=== PATIENT | female | born 1940 | race Caucasian/White ===

== ENCOUNTER 2017-11-25 09:50 | Inpatient (IN) | payer MEDICARE ==
[2017-11-25] VITALS (7 sets, daily range): BP systolic 130–203; BP diastolic 70–96; PULSE 75–86; RESP 16–18; TEMP 98.2–99; O2SAT 94–98
[~2017-11-25] VITALS: Ht 162.6 cm; Wt 84.4 kg
[~2017-11-25 09:50] MED LIST: DILTCD300 PO; FLON0.053; FURO20TA PO; KLOR8TAB PO; LISI-363 PO; LORA-392 PO; OMEP20TA PO; STELARA INJ
[2017-11-25 11:02] LABS: AUTOMATED NEUTROPHIL # 7.8 TH/MM3 (1.8-7.7); BASOPHIL % 0.4 % (0.0-2.0); EOSINOPHIL % 0.2 % (0.0-4.0); HEMATOCRIT 41.1 % (35.0-46.0); HEMOGLOBIN 13.9 GM/DL (11.6-15.3); LYMPH % 10.3 % (9.0-44.0); LYMPHOCYTE # 0.9 TH/MM3 (1.0-4.8); MEAN CELL VOLUME 90.1 FL (80.0-100.0); MEAN CORPUSCULAR HEMOGLOBIN 30.5 PG (27.0-34.0); MEAN CORPUSCULAR HGB CONC 33.9 % (32.0-36.0); MEAN PLATELET VOLUME 8.8 FL (7.0-11.0); MONO % 2.2 % (0.0-8.0); MONOCYTE # 0.2 TH/MM3 (0-0.9); NEUT % 86.9 % (16.0-70.0); PLATELET COUNT 232 TH/MM3 (150-450); RED BLOOD COUNT 4.56 MIL/MM3 (4.00-5.30); RED CELL DISTRIBUTION WIDTH 13.9 % (11.6-17.2)
[2017-11-25] MEDS ORDERED: OMEP20TA93 PO (11:04)
[2017-11-25] MEDS ORDERED: HYDR-3516 (11:04)
[2017-11-25] MEDS ORDERED: FURO1TAB62 PO (11:04)
[2017-11-25] MEDS ORDERED: FLUT1SPR5 EACH NARE (11:04)
[2017-11-25] MEDS ORDERED: LISI-515 PO (11:04)
[2017-11-25] MEDS ORDERED: LORA-392 PO (11:04)
[2017-11-25] MEDS ORDERED: DILT300C3 PO (11:04)
[2017-11-25] MEDS ORDERED: KLOR8TAB PO (11:04)
[2017-11-25 11:17] LABS: BICARBONATE 24.6 MEQ/L (21.0-32.0); CALCIUM 10.2 MG/DL (8.5-10.1); CREATININE 1.25 MG/DL (0.50-1.00)
--- NOTE | 2017-11-25 11:23 | PD ---
HPI Chief Complaint: Flank/Kidney Pain Time Seen by Provider: 11:06 Travel History International Travel<30 days: No Contact w/Intl Traveler<30days: No Traveled to known affect area: No History of Present Illness HPI 77-year-old female presents emergency department with sudden onset right-sided lower abdominal and flank pain since approximately 1 AM this morning. Patient states history of kidney stones in the past with similar presentation. Patient also questions possible urinary tract infection. Patient is nauseous with a couple Episodes of vomiting this morning. Patient questions fever. Patient denies diarrhea. Pain is waxing and waning over the past several hours. Currently is an 8 out of 10. She states she is not allergic to morphine, but it "does not work". PFSH Past Medical History Arthritis: No Blood Disorders: No Heart Rhythm Problems: No Cancer: Yes (SKIN CANCERS) Cardiovascular Problems: No High Cholesterol: Yes Chemotherapy: No Chest Pain: No Congestive Heart Failure: No Diabetes: No Diminished Hearing: No Endocrine: No Gastrointestinal Disorders: Yes (ACID REFLUX ) GERD: Yes Glaucoma: No Genitourinary: No Hepatitis: No Hiatal Hernia: No Hypertension: Yes Kidney Stones: Yes Medical other: No Musculoskeletal: Yes (ARTHRITIS) Neurologic: No Psychiatric: No Reproductive: No Respiratory: No Integumentary: Yes (PSORIASIS) Radiation Therapy: No Renal Failure: No Thyroid Disease: No Ulcer: No Tetanus Vaccination: Unknown Influenza Vaccination: No Menopausal: Yes Past Surgical History Abdominal Surgery: Yes (APPY ) AICD: No Appendectomy: Yes Arteriovenous Shunt: No Cardiac Surgery: No Ear Surgery: No Endocrine Surgery: No Eye Surgery: Yes (EMILY CATARACT EXTRACTION WITH LENS IMPLANT ) Genitourinary Surgery: Yes (KIDNEY STONES. HAD LITHOTRIPSY) Gynecologic Surgery: No Insulin Pump: No Joint Replacement: No Oral Surgery: Yes (TONSILLECTOMY) Pacemaker: No Thoracic Surgery: No Tonsillectomy: Yes Other Surgery: Yes (LITHOTRIPSY) Social History Alcohol Use: Yes (WINE OCC) Tobacco Use: No Substance Use: No Allergies-Medications (Allergen,Severity, Reaction): Coded Allergies: amoxicillin (Unverified Allergy, Severe, 11/25/17) PT UNSURE BUT SHE THINKS SHE JUST DIDN'T FEEL WELL WHEN TAKEN morphine (Unverified Allergy, Mild, 11/25/17) INEFFECTIVE WHEN ADMINISTERED FOR KIDNEY STONES fexofenadine (Unverified Allergy, Unknown, ANXIETY, 3/8/18) methotrexate (Unverified Allergy, Unknown, LIVER ENZYMES ELEVATED, 11/25/17) moxifloxacin (Unverified Allergy, Unknown, ANXIETY, 11/25/17) leflunomide (Unverified Adverse Reaction, Intermediate, Diarrhea, 11/25/17) UNCERTAIN; PATIENT DOES NOT RECALL TAKING THIS MED Uncoded Allergies: embrel (Allergy, Mild, SUPERVISOR PHOTOCOMPOSITION EFFECTS; COULDN'T WALK, 04/09/15) PSORATANE (Allergy, Unknown, UNKNOWN, 05/14/09) q tUSS (Allergy, Unknown, ANXIETY, 04/09/15) PT HAS NO RECOLLECTION OF THIS MED OR THE REACTION Reported Meds & Prescriptions Reported Meds & Active Scripts Active Reported Hydrocodone-Acetamin 5-325 mg (Hydrocodone/Acetaminophen) 5 Mg-325 Mg Tablet Klor-Con 8 (Potassium Chloride) 8 Meq Tab 8 Meq PO DAILY Omeprazole 20 Mg Tab 20 Mg PO DAILY Ativan (Lorazepam) 0.5 Mg Tab 0.5 Mg PO HS PRN Lisinopril 20 Mg Tab 20 Mg PO BID Lasix (Furosemide) 20 Mg Tab 20 Mg PO DAILY Flonase Nasal [place] (Fluticasone Nasal [place]) 50 Mcg/Act [place] 50 Mcg EACH NARE BID Diltiazem CD 24 HR 300 Mg Caper 300 Mg PO DAILY [Stelara] 45 Mg INJ Q 3 MONTHS Review of Systems Except as stated in HPI: all other systems reviewed are Neg General / Constitutional: Positive: Chills, No: Fever Eyes: No: Visual changes HENT: No: Headaches Cardiovascular: No: Chest Pain or Discomfort Respiratory: No: Shortness of Breath Gastrointestinal: Positive: Nausea, Vomiting, Abdominal Pain, No: Diarrhea Genitourinary: Positive: Flank Pain, No: Urgency, Frequency, Dysuria, Nocturia , Hematuria, Discharge Musculoskeletal: No: Myalgias, Arthralgias, Limited ROM, Pain Skin: No Rash Neurologic: No: Weakness Psychiatric: No: Depression Endocrine: No: Polydipsia Hematologic/Lymphatic: No: Easy Bruising Physical Exam Narrative GENERAL: Patient appears ill but not septic. She is obviously nauseous. SKIN: Warm and dry. Somewhat decreased pallor. Normal turgor. No diaphoresis. HEAD: Normocephalic. Nontender. EYES: Pupils equal and round. No scleral icterus. No injection or drainage. ENT: No nasal bleeding or discharge. Mucous membranes pink and moist. Pharynx is clear. Airways patent. TMs are clear. NECK: Trachea midline. Supple and nontender CARDIOVASCULAR: Regular rate and rhythm. No murmurs gallops or rubs per RESPIRATORY: No accessory muscle use. Clear to auscultation. Breath sounds equal bilaterally. GASTROINTESTINAL: Abdomen soft, mild to moderate nonspecific right sided abdominal tenderness. No significant CVA tenderness. The abdomen appear nondistended. Hepatic and splenic margins not palpable. MUSCULOSKELETAL: Extremities without clubbing, cyanosis, or edema. No obvious deformities. NEUROLOGICAL: Awake and alert. No obvious cranial nerve deficits. Motor grossly within normal limits. Five out of 5 muscle strength in the arms and legs. Normal speech. PSYCHIATRIC: Appropriate mood and affect; insight and judgment normal. Data Data Last Documented VS Vital Signs Date Time Temp Pulse Resp B/P (MAP) Pulse Ox O2 Delivery O2 Flow Rate FiO2 11/25/17 12:52 75 154/77 (102) 95 Nasal Cannula 2.00 11/25/17 09:55 98.2 16 Orders Orders Urinalysis - C+S If Indicated (11/25/17 09:57) Complete Blood Count With Diff (11/25/17 09:57) Basic Metabolic Panel (Bmp) (11/25/17 09:57) Lipase (11/25/17 11:28) Prothrombin Time / Inr (Pt) (11/25/17 11:28) Act Partial Throm Time (Ptt) (11/25/17 11:28) Iv Access Insert/Monitor (11/25/17 11:28) Ecg Monitoring (11/25/17 11:28) Oximetry (11/25/17 11:28) NPO (11/25/17 11:28) Ondansetron Inj (Zofran Inj) (11/25/17 11:30) Sodium Chlor 0.9% 1000 Ml Inj (Ns 1000 M (11/25/17 11:28) Sodium Chloride 0.9% Flush (Ns Flush) (11/25/17 11:30) Electrocardiogram (11/25/17 11:28) Dicyclomine Inj (Bentyl Inj) (11/25/17 11:30) Hydromorphone Pf Inj (Dilaudid Pf Inj) (11/25/17 11:30) Hydromorphone Pf Inj (Dilaudid Pf Inj) (11/25/17 12:00) Ct Abd/Pel W/O Iv Contrast (11/25/17 11:48) Oral Contrast - Adult (11/25/17 12:02) Diatrizoate Liq (Md [place] Liq) (11/25/17 12:58) Tamsulosin (Flomax) (11/25/17 15:45) Ceftriaxone Inj (Rocephin Inj) (11/25/17 15:45) Ondansetron Inj (Zofran Inj) (11/25/17 16:15) Consult Urology (11/25/17 ) Labs Laboratory Tests Test 11/25/17 10:15 11/25/17 10:55 11/25/17 12:05 White Blood Count 9.0 TH/MM3 Red Blood Count 4.56 MIL/MM3 Hemoglobin 13.9 GM/DL Hematocrit 41.1 % Mean Corpuscular Volume 90.1 FL Mean Corpuscular Hemoglobin 30.5 PG Mean Corpuscular Hemoglobin Concent 33.9 % Red Cell Distribution Width 13.9 % Platelet Count 232 TH/MM3 Mean Platelet Volume 8.8 FL Neutrophils (%) (Auto) 86.9 % Lymphocytes (%) (Auto) 10.3 % Monocytes (%) (Auto) 2.2 % Eosinophils (%) (Auto) 0.2 % Basophils (%) (Auto) 0.4 % Neutrophils # (Auto) 7.8 TH/MM3 Lymphocytes # (Auto) 0.9 TH/MM3 Monocytes # (Auto) 0.2 TH/MM3 Eosinophils # (Auto) 0.0 TH/MM3 Basophils # (Auto) 0.0 TH/MM3 CBC Comment DIFF FINAL Differential Comment Prothrombin Time 10.2 SEC Prothromb Time International Ratio 1.0 RATIO Activated Partial Thromboplast Time 25.4 SEC Blood Urea Nitrogen 30 MG/DL Creatinine 1.25 MG/DL Random Glucose 127 MG/DL Calcium Level 10.2 MG/DL Sodium Level 140 MEQ/L Potassium Level 3.9 MEQ/L Chloride Level 107 MEQ/L Carbon Dioxide Level 24.6 MEQ/L Anion Gap 8 MEQ/L Estimat Glomerular Filtration Rate 41 ML/MIN Urine Color YELLOW Urine Turbidity HAZY Urine pH 8.0 Urine Specific [place] 1.015 Urine Protein TRACE mg/dL Urine Glucose (UA) NEG mg/dL Urine Ketones TRACE mg/dL Urine Occult Blood SMALL Urine Nitrite NEG Urine Bilirubin NEG Urine Urobilinogen LESS THAN 2.0 MG/DL Urine Leukocyte Esterase NEG Urine RBC 44 /hpf Urine WBC 2 /hpf Urine Squamous Epithelial Cells <1 /hpf Urine Amorphous Sediment OCC Urine Mucus FEW /lpf Microscopic Urinalysis Comment CULT NOT INDICATED Lipase 132 U/L MDM Medical Decision Making Medical Screen Exam Complete: Yes Emergency Medical Condition: Yes Medical Record Reviewed: Yes Differential Diagnosis Abdominal pain. Flank pain. Nausea, vomiting, gastritis. Diverticulitis. Kidney stone. Pancreatitis. Narrative Course Patient is ill but medically stable at time of exam. Labs ordered including CBC, CMP, lipase, urinalysis, coagulation studies. IV access is obtained, and the patient is given 4 mg Zofran IV as well as 1 mg tablet at IV as she is allergic to morphine. Patient is given 1000 mL's normal saline bolus. Patient is [address] of the abdomen without IV contrast with oral contrast is ordered CBC shows no significant leukocytosis Coagulation studies are unremarkable. Chemistries unremarkable except for BUN of 30, creatinine of 1.25, GFR 41. Random glucose 127. Calcium slightly elevated at 10.2 Urinalysis is unremarkable, other than small occult blood with 44 RBCs per high- power field. CT shows: 1. There is a 9 mm stone in the proximal right ureter just below the UPJ causing hydronephrosis to the right kidney. 2. 4 mm stone lower pole right kidney not causing obstruction. 3. Scattered diverticulosis of the sigmoid colon without inflammatory changes. 4. Multiple calcified uterine fibroids. Calls placed to Dr. Montemayor, the urologist video production assistant. Patient started to vomit again, and was given an additional 4 mg Zofran IV At this point I chose to admit the patient having not received a call back from the urologist. Call was placed to the hospitalist, and the patient was discussed with Dr. Love, who agreed to admit the patient. Consult was placed to Dr. Montemayor the urologist. Diagnosis Primary Impression: Hydronephrosis with urinary obstruction due to renal calculus Admitting Information Admitting Physician Requests: Admit Condition: Stable Jeffrey Robin Nov 25, 2017 11:23
[2017-11-25] MEDS ORDERED: SODIUM CHLOR 0.9% 1000 ML INJ 1,000 ML IV SCH ×2 (11:28→17:00)
[2017-11-25] MEDS ORDERED: ONDANSETRON HCL 4 MG/2 ML VIAL IVP ONE (11:30)
[2017-11-25] MEDS ORDERED: SODIUM CHLORIDE 0.9% FLUSH 10 ML FLUSH IV FLUSH PRN (11:30)
[2017-11-25] MEDS ORDERED: HYDROmorphone HCL PF 1 MG/ML VIAL IVS ONE (11:30)
[2017-11-25] MEDS ORDERED: DICYCLOMINE HCL 20 MG/2 ML VIAL IM ONE (11:30)
[2017-11-25 11:37] LABS: AMORPHOUS SEDIMENT, URINE OCC; BILIRUBIN, URINE NEG (NEG); BLOOD, URINE SMALL (NEG); GLUCOSE,URINE NEG (NEG); KETONE, URINE TRACE mg/dL (NEG); MUCUS URINE FEW /lpf (OCC); NITRITE,URINE NEG (NEG); SQUAMOUS EPITHELIAL CELL URINE <1 /hpf (0-5); URINE COLOR YELLOW (YELLW/STRAW); URINE LEUKOCYTE ESTERASE NEG (NEG)
[2017-11-25] MEDS ORDERED: HYDROmorphone HCL PF 2 MG/ML VIAL IV PUSH ONE (12:00)
[2017-11-25 12:03] LABS: PROTHROMBIN TIME - PATIENT 10.2 SEC (9.8-11.6)
[2017-11-25] MEDS ORDERED: DIATRIZOATE MEGLUM/DIATRIZOATE SOD 9 ML CUP ONE (12:58)
--- NOTE | 2017-11-25 14:56 | RADRPT ---
EXAM DATE/TIME: 11/25/2017 14:32 [facility] COMPARISON: CT ABDOMEN & PELVIS W CONTRAST, January 06, 2015, 16:15. INDICATIONS : Right sided abdominal pain. ORAL CONTRAST: Prescribed oral contrast ingested. RADIATION DOSE: 15.39 CTDIvol (mGy) MEDICAL HISTORY : Hypertension. SURGICAL HISTORY : Appendectomy. ENCOUNTER: Initial ACUITY: 2 days PAIN SCALE: 8/10 LOCATION: Right flank TECHNIQUE: Volumetric scanning of the abdomen and pelvis was performed. Using automated exposure control and ad justment of the mA and/or kV according to patient size, radiation dose was kept as low as reasonably achievable to obtain optimal diagnostic quality images. DICOM format image data is available electro nically for review and comparison. The lack of IV contrast limits the diagnosis for certain organ pa thology. FINDINGS: LOWER LUNGS: The visualized lower lungs are clear. LIVER: Homogeneous density without lesion. Stable 1.1 cm cyst left lobe of the liver. There is no dilation of the biliary tree. No calcified gallstones. SPLEEN: Normal size without lesion. PANCREAS: Within normal limits. KIDNEYS: There is hydronephrosis and perinephric edema the right kidney. There is a 4 mm stone in the lower po le the right kidney not causing obstruction. There is a 9 mm stone in the proximal right ureter causi ng obstruction. This is just below the UPJ. The left kidney is unremarkable. ADRENAL GLANDS: Within normal limits. VASCULAR: There is no aortic aneurysm. BOWEL/MESENTERY: The stomach, small bowel, and colon demonstrate no acute abnormality. There is no free intraperitone al air or fluid. No inflammatory changes are seen. There is stool throughout the colon. Some scattere d diverticula in the sigmoid colon. ABDOMINAL WALL: Within normal limits. RETROPERITONEUM: There is no lymphadenopathy. BLADDER: No wall thickening or mass. No bladder stones. REPRODUCTIVE: Calcified uterine fibroids. INGUINAL: There is no lymphadenopathy or hernia. MUSCULOSKELETAL: Within normal limits for patient age. Chronic degenerative changes lumbar spine. There is some old co mpression of T12 and L1. CONCLUSION: 1. There is a 9 mm stone in the proximal right ureter just below the UPJ causing hydronephrosis to th e right kidney. 2. 4 mm stone lower pole right kidney not causing obstruction. 3. Scattered diverticulosis of the sigmoid colon without inflammatory changes. 4. Multiple calcified uterine fibroids. Valdez Macdonald MD on November 25, 2017 at 14:49 Board Certified Radiologist. This report was verified electronically.
[2017-11-25] MEDS ORDERED: cefTRIAXone INJ 1,000 MG in SODIUM CHLORIDE 0.9% INJ 100 ML IV ONE (15:45)
[2017-11-25] MEDS ORDERED: TAMSULOSIN HCL 0.4 MG CAP PO ONE (15:45)
[2017-11-25] MEDS ORDERED: ONDANSETRON HCL 4 MG/2 ML VIAL IV PUSH ONE (16:15)
--- NOTE | 2017-11-25 16:27 | HHI.HP ---
HPI Service [facility] Hospitalists Primary Care Physician Larissa Thompson MD Admission Diagnosis Obstructing Kidney Stone/Vomitting/Intractable Pain Chief Complaint: Right flank pain, N/V Travel History International Travel<30 Days: No Contact w/Intl Traveler <30 Da: No Traveled to Known Affected Are: No History of Present Illness Mrs. Mahajan is a pleasant 77 y/o WF with HTN, GERD, anxiety, and psoriasis who [place] [facility] with complaints of sudden onset right- sided lower abdominal and flank pain since approximately 1 AM this morning. Patient states that she has a previous history of kidney stones and has required lithotripsy previously. She has had some associated nausea and vomiting that began this morning as well. She reports that the symptoms are similar to when she has had kidney stones in the past. She follows with Dr. Vasquez for Urology. She reported some chills when she first came to the ED but denies any noted fever. Pt had a CT abd/pelvis in the ED which noted a 9mm stone in the proximal right ureter just below the UPJ causing hydronephrosis to the right kidney and a 4 mm stone lower pole right kidney not causing obstruction. Pt was given IV Dilaudid in the ER and a dose of Rocephin. Her noted a small amount occult blood, 44 RBCs and few mucus. She denies any chest pain, SOB, palpitations, diarrhea, dysuria, hematuria, fevers, or weakness. Review of Systems Constitutional: COMPLAINS OF: Chills, DENIES: Fever, Dizziness, Night Sweats Respiratory: DENIES: Cough, Shortness of breath Cardiovascular: DENIES: Chest pain, Palpitations Gastrointestinal: COMPLAINS OF: Abdominal pain, Nausea, Vomiting, DENIES: Black stools, Constipation, Diarrhea, GERD Genitourinary: DENIES: Hematuria, Dysuria Musculoskeletal: DENIES: Back pain Integumentary: DENIES: Rash Neurologic: DENIES: Headache Psychiatric: DENIES: Confusion Past Family Social History Past Medical History HTN Psoriasis Psoriatic arthritis GERD Anxiety Hx of nephrolithiasis Hx PSVT Past Surgical History Appendectomy Cataract surgery Tonsillectomy Reported Medications -Hydrocodone-Acetamin 5-325mg Mg Tablet -Klor-Con 8 Meq PO DAILY -Omeprazole 20 Mg PO DAILY -Ativan 0.5 Mg PO HS PRN -Lisinopril 20 Mg PO BID -Lasix 20 Mg PO DAILY -Flonase Nasal [place] 50 Mcg EACH NARE BID -Diltiazem CD 24 HR 300 Mg PO DAILY -Stelara 45 Mg INJ Q 3 MONTHS Allergies: Coded Allergies: amoxicillin (Unverified Allergy, Severe, 11/25/17) PT UNSURE BUT SHE THINKS SHE JUST DIDN'T FEEL WELL WHEN TAKEN morphine (Unverified Allergy, Mild, 11/25/17) INEFFECTIVE WHEN ADMINISTERED FOR KIDNEY STONES fexofenadine (Unverified Allergy, Unknown, ANXIETY, 11/25/17) methotrexate (Unverified Allergy, Unknown, LIVER ENZYMES ELEVATED, 11/25/17) moxifloxacin (Unverified Allergy, Unknown, ANXIETY, 11/25/17) leflunomide (Unverified Adverse Reaction, Intermediate, Diarrhea, 11/25/17) UNCERTAIN; PATIENT DOES NOT RECALL TAKING THIS MED Uncoded Allergies: embrel (Allergy, Mild, CREDIT INTERN EFFECTS; COULDN'T WALK, 04/09/15) PSORATANE (Allergy, Unknown, UNKNOWN, 05/14/09) q tUSS (Allergy, Unknown, ANXIETY, 04/09/15) PT HAS NO RECOLLECTION OF THIS MED OR THE REACTION Family History Multiple family members had had kidney stones Social History Occasional alcohol use Denies any tobacco or illicit drug use Pt lives locally with her Physical Exam Vital Signs Vital Signs Date Time Temp Pulse Resp B/P (MAP) Pulse Ox O2 Delivery O2 Flow Rate FiO2 11/25/17 12:52 75 154/77 (102) 95 Nasal Cannula 2.00 11/25/17 12:05 98 Room Air 11/25/17 11:04 197/88 (124) 11/25/17 09:55 98.2 81 16 203/96 (131) 98 Physical Exam GENERAL: This is a well-nourished, well-developed patient, in no apparent distress. HEENT: Atraumatic. Normocephalic. No temporal or scalp tenderness. No scleral icterus. Airway patent. NECK: Trachea midline, supple, nontender. CARDIO: Regular. RESP: CTA bilaterally. No wheezes, rales, or rhonchi. ABD: +BS, soft, nondistended, right mid to lower abdominal tenderness. No hepato -splenomegaly, or palpable masses. No guarding. EXT: Chronic bilateral LE edema. NEURO: Awake and alert. Motor and sensory grossly within normal limits. Normal speech. Laboratory Laboratory Tests Test 11/25/17 10:15 11/25/17 10:55 11/25/17 12:05 White Blood Count 9.0 Red Blood Count 4.56 Hemoglobin 13.9 Hematocrit 41.1 Mean Corpuscular Volume 90.1 Mean Corpuscular Hemoglobin 30.5 Mean Corpuscular Hemoglobin Concent 33.9 Red Cell Distribution Width 13.9 Platelet Count 232 Mean Platelet Volume 8.8 Neutrophils (%) (Auto) 86.9 Lymphocytes (%) (Auto) 10.3 Monocytes (%) (Auto) 2.2 Eosinophils (%) (Auto) 0.2 Basophils (%) (Auto) 0.4 Neutrophils # (Auto) 7.8 Lymphocytes # (Auto) 0.9 Monocytes # (Auto) 0.2 Eosinophils # (Auto) 0.0 Basophils # (Auto) 0.0 CBC Comment DIFF FINAL Differential Comment Prothrombin Time 10.2 Prothromb Time International Ratio 1.0 Activated Partial Thromboplast Time 25.4 Blood Urea Nitrogen 30 Creatinine 1.25 Random Glucose 127 Calcium Level 10.2 Sodium Level 140 Potassium Level 3.9 Chloride Level 107 Carbon Dioxide Level 24.6 Anion Gap 8 Estimat Glomerular Filtration Rate 41 Urine Color YELLOW Urine Turbidity HAZY Urine pH 8.0 Urine Specific [place] 1.015 Urine Protein TRACE Urine Glucose (UA) NEG Urine Ketones TRACE Urine Occult Blood SMALL Urine Nitrite NEG Urine Bilirubin NEG Urine Urobilinogen LESS THAN 2.0 Urine Leukocyte Esterase NEG Urine RBC 44 Urine WBC 2 Urine Squamous Epithelial Cells <1 Urine Amorphous Sediment OCC Urine Mucus FEW Microscopic Urinalysis Comment CULT NOT INDICATED Lipase 132 Result Diagram: 11/25/17 1015 11/25/17 1015 Imaging Last Impressions Abdomen/Pelvis CT 11/25/17 1148 Signed Impressions: Service Date/Time: November 14:32 - CONCLUSION: 1. There is a 9 mm stone in the proximal right ureter just below the UPJ causing hydronephrosis to the right kidney. 2. 4 mm stone lower pole right kidney not causing obstruction. 3. Scattered diverticulosis of the sigmoid colon without inflammatory changes. 4. Multiple calcified uterine fibroids. MD Laura Parsons VTE Risk Assessment Laura VTE Risk Assessment: Mod/High Risk (score >= 2) Caprini Risk Assessment Model Point Value = 1 Point Value = 2 Point Value = 3 Point Value = 5 Age 41-60 Minor surgery BMI > 25 kg/m2 Swollen legs Varicose veins or History of unexplained or recurrent spontaneous Oral contraceptives or hormone replacement Sepsis (< 1 month) Serious lung disease, including pneumonia (< 1 month) Abnormal pulmonary function Acute myocardial infarction Congestive heart failure (< 1 month) History of inflammatory bowel disease Medical patient at bed rest Age 61-74 Arthroscopic surgery Major open surgery (> 45 min) Laparoscopic surgery (> 45 min) Malignancy Confined to bed (> 72 hours) Immobilizing plaster cast Central venous access Age >= 75 History of VTE Family history of VTE Factor V Leiden Prothrombin [id number] Lupus anticoagulant Anticardiolipin antibodies Elevated serum homocysteine Heparin-induced thrombocytopenia Other congenital or acquired thrombophilia Stroke (< 1 month) Elective arthroplasty Hip, pelvis, or leg fracture Acute spinal cord injury (< 1 month) Prophylaxis Regimen Total Risk Factor Score Risk Level Prophylaxis Regimen 0-1 Low Early ambulation 2 Moderate Order ONE of the following: *Sequential Compression Device (SCD) *Heparin 5000 units SQ BID 3-4 Higher Order ONE of the following medications: *Heparin 5000 units SQ TID *Enoxaparin/Lovenox 40 mg SQ daily (WT < 150 kg, CrCl > 30 mL/min) *Enoxaparin/Lovenox 30 mg SQ daily (WT < 150 kg, CrCl > 10-29 mL/min) *Enoxaparin/Lovenox 30 mg SQ BID (WT < 150 kg, CrCl > 30 mL/min) AND/OR *Sequential Compression Device (SCD) 5 or more Highest Order ONE of the following medications: *Heparin 5000 units SQ TID (Preferred with Epidurals) *Enoxaparin/Lovenox 40 mg SQ daily (WT < 150 kg, CrCl > 30 mL/min) *Enoxaparin/Lovenox 30 mg SQ daily (WT < 150 kg, CrCl > 10-29 mL/min) *Enoxaparin/Lovenox 30 mg SQ BID (WT < 150 kg, CrCl > 30 mL/min) AND *Sequential Compression Device (SCD) Assessment and Plan Problem List: (1) Hydronephrosis with urinary obstruction due to renal calculus ICD Codes: N13.2 - Hydronephrosis with renal and ureteral calculous obstruction Status: Acute Plan: - Pt is a 77 y/o WF with HTN, GERD, anxiety, psoriasis, and hx of nephrolithiasis who [place] [facility] with complaints of sudden onset right-sided lower abdominal/flank pain that began approximately 1 AM this morning. She has had some associated nausea and vomiting that began this morning as well. - CT abd/pelvis in the ED which noted a 9mm stone in the proximal right ureter just below the UPJ causing hydronephrosis to the right kidney and a 4 mm stone lower pole right kidney not causing obstruction. - Pt was given IV Dilaudid in the ER and a dose of Rocephin. - Her UA noted a small amount occult blood, 44 RBCs and few mucus, no culture indicated - Urology is consulted - IVF - Pain control PRN - Flomax - Pt planned for cystoscopy with possible stent placement tomorrow - NPO after MN except meds - Monitor labs - Supportive care - DVT prophylaxis with SCDs (2) HTN (hypertension) ICD Codes: I10 - Essential (primary) hypertension Status: Chronic Plan: - Home meds resumed - Monitor (3) GERD (gastroesophageal reflux disease) ICD Codes: K21.9 - Gastro-esophageal reflux disease without esophagitis Plan: - PPI (4) Psoriasis ICD Codes: L40.9 - Psoriasis, unspecified Status: Chronic Plan: - Home meds on hold currently Assessment and Plan Patient examined. Assessment and plan formulated with Fidelia Azevedo PA-C. I agree with the above. right 9mm ureter stone with hydro discussed with Urology. cysto tomorrow. Fidelia Azevedo Nov 25, 2017 16:27 Florin Love MD Nov 25, 2017 18:00
[2017-11-25] MEDS ORDERED: LORazepam 0.5 MG TAB PO PRN (17:00)
[2017-11-25] MEDS ORDERED: ACETAMINOPHEN 325 MG TAB PO PRN (17:00)
[2017-11-25] MEDS ORDERED: ONDANSETRON HCL 4 MG/2 ML VIAL IV PRN (17:00)
[2017-11-25] MEDS ORDERED: oxyCODONE/ACETAMINOPHEN 5 MG/325 MG TAB PO PRN ×2 (17:15)
[2017-11-25] MEDS ORDERED: HYDROmorphone HCL PF 2 MG/ML VIAL IV PRN (17:30)
[2017-11-25] MEDS: SODIUM CHLOR 0.9% 1000 ML INJ 1,000 ML IV SCH (18:00)
[2017-11-25] MEDS: KETOROLAC TROMETHAMINE 30 MG/ML (IVP) VIAL IV PUSH SCH ×2 (18:00→23:06)
--- NOTE | 2017-11-25 18:02 | MB ---
cc: Bang Montemayor MD, Evan M MD DATE OF CONSULT: 11/25/2017 REASON FOR CONSULTATION: 1. Right flank pain, 2. Right 8 mm ureteropelvic junction stone with mild hydronephrosis. HISTORY OF PRESENT ILLNESS: The patient is a 77 year-old very pleasant female with longstanding history of kidney stones who has seen Dr. Delarosa in the past. She presented to the emergency department earlier today with complaints of sudden onset of right-sided flank pain radiating to her lower abdomen, 10/10 in nature, since 1 o'clock this morning associated with nausea and vomiting. This is a similar presentation to her kidney stones in the past. She denies dysuria or hematuria, fevers or chills. In the emergency room, she had a CT stone protocol performed which showed an 8 mm stone in her right proximal ureter with mild hydronephrosis. Her pain was initially controlled, however, she started to vomit once again; therefore, she was admitted for further evaluation. Currently, the pain meds have helped in subsiding her pain to a 6/10, but she still is quite nauseous. She has had lithotripsies in the past Dr. Delarosa for her kidney stones. She has also passed stones in the past. She has never had a metabolic workup. She gets occasional urinary tract infections. She denies any chest pain, shortness of breath. She does not take any blood thinners. PAST MEDICAL HISTORY: Significant for hypertension, psoriasis, psoriatic arthritis, GERD, anxiety, kidney stones. PAST SURGICAL HISTORY: Appendectomy, cataract surgery, tonsillectomy, lithotripsies. MEDICATIONS: Klor-Con, omeprazole, Ativan, lisinopril, Lasix, Metolazone, Stelara. ALLERGIES: AMOXICILLIN, MORPHINE, FEXOFENADINE, METHOTREXATE, MOXIFLOXACIN, LEFLUNOMIDE. FAMILY HISTORY: Family history of kidney stones. Denies genitourinary history. SOCIAL HISTORY: She occasionally drinks alcohol, denies any tobacco or illicit drug use. She lives with her . REVIEW OF SYSTEMS: See HPI. All systems reviewed, otherwise are negative. PHYSICAL EXAMINATION: VITAL SIGNS: Temperature 98.2, pulse 81, respiratory rate 16, BP 154/77, satting 98% on room air. GENERAL: She is alert and oriented x 3 in no apparent distress. She is well nourished and well developed. SKIN: No rashes, ulcers or lesions seen. It is cool and dry. HEAD: Normocephalic, atraumatic. No temporal scalp tenderness. EYES: Pupils are equal, round, reactive to light. Extraocular motions intact. No scleral icterus. ENT: Nose is without bleeding, purulent drainage. Airway is patent. Throat without erythema. NECK: Trachea is midline. No JVD, no lymphadenopathy. It is supple CARDIOVASCULAR: Regular rate and rhythm without murmurs, rubs or gallops. RESPIRATORY: Clear to auscultation bilaterally. No wheezes, rales or rhonchi. ABDOMEN: Soft, nontender, nondistended. Positive bowel sounds. No palpable masses. GENITOURINARY: She has mild right CVA tenderness. ____. MUSCULOSKELETAL: She has extremities without cyanosis, clubbing or edema. No calf tenderness. NEUROLOGIC: Cranial nerves 2-12 intact. Strength 5/5 in all four extremities. LABORATORY DATA: White count 9.0, hemoglobin 13.9, hematocrit 41.1, platelet count ____. Creatinine 1.25, BUN 30, calcium 10.2, sodium 140, potassium 3.9, chloride 107, bicarb 24.6. Her urine shows trace ketones, small blood with 44 red blood cells. IMAGING STUDIES: CT abdomen and pelvis without contrast images reviewed. I agree with radiologist's report. The patient has a 9 mm stone in the proximal ureter with mild hydronephrosis as well as a 4 mm stone in her right kidney not causing any obstruction,. ASSESSMENT: The patient is a 69 year-old female with history of kidney stones who presents with right flank pain and found to have an obstructing 8 mm right proximal stone with mild hydronephrosis. PLAN: We will make the patient n.p.o. after midnight and plan to perform a cystoscopy, right retrograde pyelogram and right ureteral stent in the morning unless she significantly improves overnight. We will give her good pain control, start her on Flomax and IV fluids. We will check a KUB in the morning. Thank you for this consultation. Bang Montemayor MD EMF/SA/ , 05:13 PM , 05:49 PM
[2017-11-25] MEDS: FLUTICASONE PROPIONATE 50 MCG/ACT 16 GM NASAL SPRAY NASAL SCH (21:00)
[2017-11-25] MEDS: LISINOPRIL 20 MG TAB PO SCH (23:05)
[2017-11-26] VITALS: BP 110/61; PULSE 80; RESP 19; TEMP 98.7; O2SAT 94
--- NOTE | 2017-11-26 00:06 | EKG ---
Date Performed: 11/25/2017 Time Performed: 13:16:41 PTAGE: 77 years EKG: Sinus rhythm BORDERLINE LEFT AXIS DEVIATION BORDERLINE ECG PREVIOUS TRACING : 01/06/2015 17.22 Since the prior tracing, there has been no significant marshall DOCTOR: Byron Decker Interpretating Date/Time 11/26/2017 00:05:38
[2017-11-26] MEDS: SODIUM CHLOR 0.9% 1000 ML INJ 1,000 ML IV SCH ×2 (02:21→11:01)
[2017-11-26 04:00] VITALS: BP 130/63; PULSE 79; RESP 20; TEMP 98.4; O2SAT 97
[2017-11-26] MEDS: KETOROLAC TROMETHAMINE 30 MG/ML (IVP) VIAL IV PUSH SCH (06:40)
--- NOTE | 2017-11-26 07:33 | RADRPT ---
EXAM DATE/TIME: 11/26/2017 06:16 [facility] COMPARISON: CT ABDOMEN & PELVIS W/O CONTRAST, November 25, 2017, 14:32. INDICATIONS : Right side abdominal pain, evaluate renal stone MEDICAL HISTORY : Hypertension. SURGICAL HISTORY : Appendectomy. ENCOUNTER: Subsequent ACUITY: 3 days PAIN SCORE: 3/10 LOCATION: Right abdomen FINDINGS: A 9 mm proximal right ureteral calculus identified on recent CT has changed in position and now appea rs to be within the renal collecting system. Gas pattern is unremarkable. CONCLUSION: Apparent change in position of the proximal right ureteral calculus which appears to have refluxed ba ck into the renal collecting system. Tomas Bonilla MD on November 26, 2017 at 7:26 Board Certified Radiologist. This report was verified electronically.
[2017-11-26 08:00] VITALS: BP 144/78; PULSE 78; RESP 18; TEMP 98.2; O2SAT 100
[2017-11-26] MEDS: LISINOPRIL 20 MG TAB PO SCH (08:15)
[2017-11-26] MEDS: FLUTICASONE PROPIONATE 50 MCG/ACT 16 GM NASAL SPRAY NASAL SCH (08:18)
[2017-11-26 08:58] LABS: AUTOMATED NEUTROPHIL # 6.4 TH/MM3 (1.8-7.7); BASOPHIL # 0.2 TH/MM3 (0-0.2); BASOPHIL % 2.4 % (0.0-2.0); HEMATOCRIT 34.6 % (35.0-46.0); HEMOGLOBIN 11.5 GM/DL (11.6-15.3); LYMPHOCYTE # 1.6 TH/MM3 (1.0-4.8); MEAN CELL VOLUME 91.3 FL (80.0-100.0); MEAN CORPUSCULAR HEMOGLOBIN 30.3 PG (27.0-34.0); MEAN CORPUSCULAR HGB CONC 33.2 % (32.0-36.0); MEAN PLATELET VOLUME 8.8 FL (7.0-11.0); MONO % 8.2 % (0.0-8.0); MONOCYTE # 0.7 TH/MM3 (0-0.9); NEUT % 71.4 % (16.0-70.0); PLATELET COUNT 181 TH/MM3 (150-450); RED BLOOD COUNT 3.79 MIL/MM3 (4.00-5.30); RED CELL DISTRIBUTION WIDTH 13.6 % (11.6-17.2); WHITE BLOOD COUNT 8.9 TH/MM3 (4.0-11.0)
[2017-11-26] MEDS ORDERED: TAMSULOSIN HCL 0.4 MG CAP PO SCH (09:00)
[2017-11-26] MEDS ORDERED: PANTOPRAZOLE SOD 20 MG DELAYED RELEASE TAB PO SCH (09:00)
[2017-11-26] MEDS ORDERED: POTASSIUM CHLORIDE 8 MEQ CONTROLLED RELEASE TAB PO SCH (09:00)
[2017-11-26] MEDS ORDERED: DILTIAZEM-CD 300 MG CAP ER PO SCH (09:00)
[2017-11-26] MEDS ORDERED: FUROSEMIDE 20 MG TAB PO SCH (09:00)
--- NOTE | 2017-11-26 09:07 | HHI.PR ---
Subjective Remarks pain controlled Objective Vitals heart reg lung cta abd s/nt ext no edema Vital Signs Date Time Temp Pulse Resp B/P (MAP) Pulse Ox O2 Delivery O2 Flow Rate FiO2 11/26/17 04:00 98.4 79 20 130/63 (85) 97 11/26/17 00:00 98.7 80 19 110/61 (77) 94 11/26/17 00:00 Room Air 11/25/17 21:10 Room Air 11/25/17 21:10 98.7 78 18 149/70 (96) 94 11/25/17 20:26 99.0 78 18 130/74 (92) 97 11/25/17 16:03 86 16 166/82 (110) 97 Room Air 11/25/17 12:52 75 154/77 (102) 95 Nasal Cannula 2.00 11/25/17 12:05 98 Room Air 11/25/17 11:04 197/88 (124) 11/25/17 09:55 98.2 81 16 203/96 (131) 98 Result Diagram: 11/26/17 0730 11/25/17 1015 Imaging Last Impressions Abdomen/Pelvis CT 11/25/17 1148 Signed Impressions: Service Date/Time: November 14:32 - CONCLUSION: 1. There is a 9 mm stone in the proximal right ureter just below the UPJ causing hydronephrosis to the right kidney. 2. 4 mm stone lower pole right kidney not causing obstruction. 3. Scattered diverticulosis of the sigmoid colon without inflammatory changes. 4. Multiple calcified uterine fibroids. Valdez Macdonald MD A/P Problem List: (1) Hydronephrosis with urinary obstruction due to renal calculus ICD Codes: N13.2 - Hydronephrosis with renal and ureteral calculous obstruction Status: Acute Plan: - Pt is a 77 y/o WF with HTN, GERD, anxiety, psoriasis, and hx of nephrolithiasis who presented to the ED at [facility] on 11/25/17 with complaints of sudden onset right-sided lower abdominal/flank pain that began approximately 1 AM this morning. She has had some associated nausea and vomiting that began this morning as well. - CT abd/pelvis in the ED which noted a 9mm stone in the proximal right ureter just below the UPJ causing hydronephrosis to the right kidney and a 4 mm stone lower pole right kidney not causing obstruction. - Pt was given IV Dilaudid for pain - Her UA noted a small amount occult blood, 44 RBCs and few mucus, no culture indicated - Urology is consulted and going for cysto today - IVF - Flomax - DVT prophylaxis with SCDs dc home when ok with Urology (2) HTN (hypertension) ICD Codes: I10 - Essential (primary) hypertension Status: Chronic Plan: - Home meds resumed - Monitor (3) GERD (gastroesophageal reflux disease) ICD Codes: K21.9 - Gastro-esophageal reflux disease without esophagitis Plan: - PPI (4) Psoriasis ICD Codes: L40.9 - Psoriasis, unspecified Status: Chronic Plan: - Home meds on hold currently Florin Love MD Nov 26, 2017 09:07
[2017-11-26 09:17] LABS: CALCIUM 9.1 MG/DL (8.5-10.1); CREATININE 1.74 MG/DL (0.50-1.00)
[2017-11-26] MEDS ORDERED: ONDANSETRON HCL 4 MG/2 ML VIAL IV ONE (12:00)
[2017-11-26] MEDS ORDERED: PHENYLEPH/NS 1000 MCG/10 ML SYR IV ONE (12:00)
[2017-11-26] MEDS ORDERED: ePHEDrine/NS 25 MG/5 ML SYRINGE IV ONE (12:00)
[2017-11-26] MEDS ORDERED: LIDOCAINE HCL 1% PF 5 ML SYRINGE OTHER ONE (12:00)
[2017-11-26] MEDS ORDERED: ceFAZolin INJ 1,000 MG VIAL IV ONE (12:00)
[2017-11-26] MEDS ORDERED: PROPOFOL 200 MG/20 ML AMP IV ONE (12:00)
--- NOTE | 2017-11-26 13:23 | HHI.PR ---
Immediate Post Op Note Procedure Date: Nov 26, 2017 Pre Op Diagnosis: right ureteral stone Post Op Diagnosis: Surgeon: Bang Montemayor Case Consultant(s): N/A Procedure: cystoscopy, right RPG, right ureteral stent insertion Anesthesia: General Drains: Other (6 x 24 JJ stent) Patient to: Bang Valentin MD Nov 26, 2017 13:23
[2017-11-26] MEDS ORDERED: DO NOT ADM ANY ANTICOAGULANT DRUGS PRN (13:32)
[2017-11-26] MEDS ORDERED: OXYC1TAB63 PO (13:55)
--- NOTE | 2017-11-26 13:55 | HHI.DCPOC ---
Discharge Care Plan Diagnosis: (1) Hydronephrosis with urinary obstruction due to renal calculus Goals to Promote Your Health * To prevent worsening of your condition and complications * To maintain your health at the optimal level Directions to Meet Your Goals Take your medications as prescribed Follow your dietary instruction Follow activity as directed Keep your appointments as scheduled Take your immunizations and boosters as scheduled If your symptoms worsen call your PCP, if no PCP go to Urgent Care Center or Emergency Room Smoking is Dangerous to Your Health. Avoid second hand smoke Call the 24-hour hour crisis hotline for domestic abuse at Florin Love MD Nov 26, 2017 13:55
[2017-11-26 13:56] VITALS: BP 18/60; PULSE 73; RESP 16; O2SAT 97
--- NOTE | 2017-11-26 16:58 | MP ---
cc: Bang Montemayor MD, Evan M MD DATE OF OPERATION: 11/26/2017 PREOPERATIVE DIAGNOSIS: 1. Right 9 mm proximal ureteral stone with mild hydronephrosis. 2. Non-obstructing 4 mm right renal stone. 3. Right flank pain. POSTOPERATIVE DIAGNOSIS: 1. Right 9 mm proximal ureteral stone with mild hydronephrosis. 2. Non-obstructing 4 mm right renal stone. 3. Right flank pain. PROCEDURE: 1. Cystourethroscopy. 2. Right retrograde pyelogram. 3. Insertion of right ureteral stent. SURGEON: Bang Montemayor MD ANESTHESIA: General. COMPLICATIONS: None. PREOPERATIVE ANTIBIOTICS: Ancef 2 grams IV. DRAINS: 6 x 24 double-J regular stent. ESTIMATED BLOOD LOSS: Minimal. DISPOSITION: Stable to recovery. INDICATIONS: The patient is a 77-year-old female with a longstanding history of kidney stone who presented to the ER yesterday with complaints of right flank and nausea. The patient had a CT abdomen and pelvis without contrast performed which showed a 9 mm proximal stone with mild hydronephrosis. The patient was admitted for pain control and observation overnight, but she continued to have pain. Due to the size of the stone and her persistent symptoms, she was then scheduled for stent placement today. After risks, benefits and alternatives were explained to patient, the patient wished to proceed. Informed consent was obtained. PROCEDURE IN DETAIL: The patient was properly identified, brought back to the cystoscopy suite and laid supine on cystoscopy table. Proper timeout was performed. Under the direction of anesthesiologist, the patient was intubated and induced under general anesthetic. Preoperative antibiotics in the form of Ancef 2 grams IV was given 1 hour prior to the start of the procedure. The patient was then placed in dorsal lithotomy position, prepped and draped in normal sterile surgical fashion. Rigid cystoscope was carefully passed into the bladder per urethra without any difficulty. The bladder was carefully examined. It appeared to be normal. No evidence of tumor, stones, diverticula or trabeculations. Her bladder mucosa appeared to be normal. Both orifices were identified and appeared in normal anatomical location. Prior to shooting retrograde pyelogram, a it help desk technician fluoroscopic imaging was taken which showed the obvious stone in the right UPJ approximately 9 mm in size which corresponded to the CT scan findings. I then passed a 5-Cymraes open-ended ureteral catheter just inside the right ureteral orifice. A retrograde pyelogram was performed which showed mild hydronephrosis just proximal to the stone. A wire was then passed through the indwelling ureteral catheter up into the right kidney without difficulty. The ureteral catheter was then removed. Sustainability Coordinator fluoroscopic image was taken which showed the bladder in the pole of the right kidney. A 6 x 24 stent was then carefully passed over the wire up into the right kidney under the guidance of fluoroscopy. The wire was removed. A good curl was seen both in the upper pole of the right kidney and in the bladder. The bladder was then drained. This completed the procedure. The patient was extubated and sent to recovery in stable condition. She will be transferred back to the floor. From urology standpoint, it was okay for her to be discharged home as long as she recovers from the anesthesia. She follows as an outpatient for treatment of her stone. Bang Montemayor MD EMGriffin//korina , 03:44 PM , 04:50 PM
== END 2017-11-26 16:35 | disposition home or self-care (01) | DRG 694 ==
LOC: NEPD 09:50 → NEDA 16:23 → N04B 20:50
PROVIDERS: ADMIT Hospitalist; ATTEND Hospitalist
PROC: BT1D1ZZ Fluoroscopy of Right Kidney, Ureter and Bladder using Low Osmolar Contrast (ICD-10-PCS; 2017-11-26)
PROC: 0T768DZ Dilation of Right Ureter with Intraluminal Device, Via Natural or Artificial Opening Endoscopic (ICD-10-PCS; principal; 2017-11-26 12:51)
DX: N13.2 Hydronephrosis with renal and ureteral calculous obstruction (principal); L40.50 Arthropathic psoriasis, unspecified; I10 Essential (primary) hypertension; K21.9 Gastro-esophageal reflux disease without esophagitis; E78.00 Pure hypercholesterolemia, unspecified; K57.30 Diverticulosis of large intestine without perforation or abscess without bleeding; D25.9 Leiomyoma of uterus, unspecified; F41.9 Anxiety disorder, unspecified; Z85.828 Personal history of other malignant neoplasm of skin; Z87.442 Personal history of urinary calculi; Z88.1 Allergy status to other antibiotic agents; Z88.5 Allergy status to narcotic agent
CPT/HCPCS: 74018; 74176; 74420; 80048; 81001; 83690; 85025; 85610; 85730; 93005; 96361; 96365; 96372; 96375; C1769; C2617; J0500; J0690; J0696; J1170; J1885; J2370; J2405; J3010; J7030; Q9963